=== PATIENT | female | born 1975 | race Caucasian/White ===

== ENCOUNTER 2018-06-14 04:51 | Emergency (ER) | payer OTHER ==
[2018-06-14 07:16] LABS: ADD MAN DIFF? NO
[2018-06-14 07:21] LABS: WHITE BLOOD COUNT 13.3 10^3/ul (4.8-10.8)
[2018-06-14 07:21] LABS: BASOPHIL # 0.1 10^3/ul (0.0-0.1); BASOPHILS % 0.5 % (0.0-2.0); EOSINOPHILS % 0.3 % (0.0-7.0); HEMATOCRIT 41.2 % (37.0-47.0); HEMOGLOBIN 13.6 g/dl (12.0-16.0); LYMPHOCYTES # 1.5 10^3/ul (0.8-2.9); LYMPHOCYTES % 11.2 % (15.0-51.0); MEAN CORPUSCULAR HEMOGLOBIN 28.5 pg (29.0-33.0); MEAN CORPUSCULAR VOLUME 86.2 fl (82.0-101.0); MONOCYTE # 0.6 10^3/ul (0.3-0.9); MONOCYTES % 4.2 % (0.0-11.0); NEUTROPHIL # 11.1 10^3/ul (1.6-7.5); NEUTROPHILS % 83.5 % (39.0-77.0); PLATELET COUNT 413 10^3/UL (140-415); RED BLOOD COUNT 4.78 10^6/ul (4.20-5.40)
[2018-06-14] MEDS: ONDANSETRON 4 MG INJ IV ×2 (07:23→09:16)
[2018-06-14] MEDS: KETOROLAC 30 MG INJ IV (07:27)
[2018-06-14] MEDS: SOD CHLORIDE 0.9% 1,000 ML IV (07:28)
[2018-06-14 07:45] LABS: PROTIME 12.2 Sec (11.9-14.9)
[2018-06-14 07:46] LABS: PARTIAL THROMBOPLASTIN TIME 22.8 Sec (25.0-35.0)
[2018-06-14 07:49] LABS: ADD UMIC YES; UR ASCORBIC ACID NEGATIVE (NEGATIVE); UR BILIRUBIN (Dip) NEGATIVE (NEGATIVE); UR BLOOD (Dip) 2+ mg/dL (NEGATIVE); UR CLARITY CLEAR (CLEAR); UR COLOR YELLOW (YELLOW); UR GLUCOSE (Dip) NEGATIVE (NEGATIVE); UR KETONES (Dip) NEGATIVE (NEGATIVE); UR LEUKOCYTE ESTERASE (Dip) NEGATIVE Leu/ul (NEGATIVE); UR NITRITE (Dip) NEGATIVE (NEGATIVE); UR RBC 8 /HPF (0-5); UR SPECIFIC GRAVITY (Dip) 1.016 (1.003-1.030); UR TOTAL PROTEIN (Dip) NEGATIVE (NEGATIVE); UR UROBILINOGEN (Dip) NEGATIVE (NEGATIVE); UR WBC 1 /HPF (0-5)
[2018-06-14 07:56] LABS: ALANINE AMINOTRANSFERASE 22 IU/L (13-69); ALBUMIN/GLOBULIN RATIO 1.02; ALKALINE PHOSPHATASE 89 IU/L (42-121); AMYLASE 68 U/L (11-123); ANION GAP 17 (8-16); ASPARTATE AMINO TRANSFERASE 47 IU/L (15-46); BILIRUBIN,INDIRECT 0.2 mg/dl (0-1.1); BILIRUBIN,TOTAL 0.2 mg/dl (0.2-1.3); BLOOD UREA NITROGEN 17 mg/dl (7-20); CALCIUM 9.7 mg/dl (8.4-10.2); CARBON DIOXIDE 23 mmol/L (21-31); CHLORIDE 106 mmol/L (97-110); CREATININE 0.85 mg/dl (0.44-1.00); GLUCOSE 108 mg/dl (70-220); LIPASE 87 U/L (23-300); POTASSIUM 4.5 mmol/L (3.5-5.1); SODIUM 141 mmol/L (135-144); TOTAL PROTEIN 7.9 g/dl (6.1-8.1)
[2018-06-14 08:07] LABS: TROPONIN-I < 0.012 ng/ml (0.000-0.120)
[2018-06-14] MEDS: morphine 4 MG/ML VIAL IV (09:16)
== END 2018-06-14 11:21 | disposition home or self-care (01) ==
LOC: E/R 04:51
DX: K80.20 Calculus of gallbladder without cholecystitis without obstruction (principal); I82.5Z1 Chronic embolism and thrombosis of unspecified deep veins of right distal lower extremity
CPT/HCPCS: 36415; 76705; 80053; 81001; 81025; 82150; 83690; 84484; 85025; 85610; 85730; 93005; 93970; 96374; 96375; 99285-25